=== PATIENT | female | born 1980 | race Caucasian/White ===

== ENCOUNTER 2018-10-23 01:48 | Emergency (ER) | payer SELFPAY ==
[~2018-10-23] VITALS: Ht 152.4 cm; Wt 84.8 kg
[2018-10-23 01:57] VITALS: BP 126/70
--- NOTE | 2018-10-23 02:05 | NUR ---
ASSUMED CARE OF PT AT THIS TIME. C/O EPIGASTRIC PAIN W/ N/V X 5 HOURS. AAOX4 WITH EVEN AND STEADY GAIT; PATIENT STATES PAIN OF 10/10; VSS; PATIENT POSITIONED FOR COMFORT; HOB ELEVATED; BEDRAILS UP X2; BED DOWN. ER MD MADE AWARE OF PT STATUS. WILL CONTINUE TO MONITOR.
[2018-10-23] MEDS ORDERED: NACL 0.9% 500 ML IV ONE (02:12)
[2018-10-23] MEDS ORDERED: ONDANSETRON 4 MG/2 ML VIAL IVP ONE (02:15)
[2018-10-23] MEDS ORDERED: KETOROLAC 30 MG/ML VIAL IVP ONE (02:15)
[2018-10-23 02:25] LABS: BASOPHILS # (AUTO) 0.3 K/uL (0.00-0.22); BASOPHILS % (AUTO) 2.4 % (0.0-2.0); EOSINOPHILS # (AUTO) 0.2 K/uL (0-0.4); EOSINOPHILS % (AUTO) 1.7 % (0.0-4.0); HEMATOCRIT 42.6 % (36-48); LYMPHOCYTES # (AUTO) 3.9 K/uL (2.5-16.5); LYMPHOCYTES % (AUTO) 33.3 % (20.5-51.1); MEAN CORPUSCULAR HEMOGLOBIN 29 pg (27-31); MEAN CORPUSCULAR HGB CONC 33 g/dL (33-37); MEAN CORPUSCULAR VOLUME 87.5 fL (80-94); MONOCYTES # (AUTO) 0.9 K/uL (0.8-1.0); MONOCYTES % (AUTO) 7.6 % (1.7-9.3); NEUTROPHILS # (AUTO) 6.4 K/uL (1.8-7.7); PLATELET COUNT (AUTO) 180 K/uL (140-450); RED BLOOD CELL COUNT(AUTO) 4.86 MIL/uL (4.20-5.40); RED CELL DISTRIBUTION WIDTH 12.7 % (11.6-13.7); WHITE BLOOD COUNT (AUTO) 11.6 K/uL (4.8-10.8)
[2018-10-23] MEDS ORDERED: NACL 0.9% 1,000 ML IV ONE (02:25)
[2018-10-23 02:38] LABS: ALBUMIN 3.8 g/dL (3.4-5.0); ANION GAP 9.6 (8-16); CREATININE 0.8 mg/dL (0.6-1.3); POTASSIUM 3.6 mmol/L (3.5-5.1); TOTAL BILIRUBIN 0.3 mg/dL (0.0-1.0)
[2018-10-23] MEDS ORDERED: MORPHINE SULFATE 4 MG/ML SYR IVP ONE (02:45)
[2018-10-23 03:55] VITALS: BP 122/74
--- NOTE | 2018-10-23 03:55 | NUR ---
Patient discharged with v/s stable. Written and verbal after care instructions given and explained. Patient alert, oriented and verbalized understanding of instructions. Ambulatory with steady gait. All questions addressed prior to discharge. ID band removed. Patient advised to follow up with PMD. Rx of ZOFRAN, PROTONIX, AND MAALOX given. Patient educated on indication of medication including possible reaction and side effects. Opportunity to ask questions provided and answered.
== END 2018-10-23 03:55 | disposition home or self-care (01) ==
LOC: MED 01:48
DX: K29.00 Acute gastritis without bleeding (principal); M54.9 Dorsalgia, unspecified
CPT/HCPCS: 36415; 76705; 80053; 81002; 81025; 83690; 85025; 96361; 96374; 96375; 99284; J1885; J2270; J2405; J7030; Q0092